=== PATIENT | female | born 1955 | race Caucasian/White ===

== ENCOUNTER 2016-09-13 11:30 | Outpatient (RCR) | payer OTHER ==
[~2016-09-13 11:30] MED LIST: EMPA1TAB3 PO; FAMO20TA45 PO; IBUP1TAB14 PO; LORC10TA PO; METF1000 PO; OXYC-197 PO; PRAV20TA3 PO; VALS160T28 PO; VITA1CAP PO
== END 2016-09-13 12:03 | disposition home or self-care (01) ==
PROVIDERS: ATTEND Orthopaedic Surgery
DX: Z98.890 Other specified postprocedural states (principal); M25.562 Pain in left knee

== ENCOUNTER 2017-10-20 23:06 | Emergency (ER) | payer OTHER ==
[~2017-10-20] VITALS: Ht 160 cm; Wt 84.4 kg
[~2017-10-20 23:06] MED LIST changes: -METF1000 PO; +METF10002 PO; -VALS160T28 PO; +VALS160T29 PO
[2017-10-20] MEDS ORDERED: fentaNYL INJECTION 100 MCG/2 ML AMP IVP STA (23:39)
[2017-10-20] MEDS ORDERED: DEXAMETHASONE 10 MG/ML (DECADRON) 1 ML VIAL IV STA (23:42)
[2017-10-20] MEDS ORDERED: ONDANSETRON 4 MG/2 ML (SDV) Z0FRAN IVP ONE (23:45)
--- NOTE | 2017-10-20 23:49 | ED General ---
General Stated Complaint: TOOTH PAIN Source of Information: Patient Exam Limitations: No Limitations History of Present Illness Date Seen by Provider: Oct 20, 2017 Time Seen by Provider: 23:20 Initial Comments Here with left-sided jaw pain that is at the area of the TMJ and along the lower jaw. Apparently had cataract surgery a few days ago and then Saturday night noted to have pain near the area were her bridge sats on the left lower jaw. Those teeth are sensitive and then she started having pain into her TMJ area. This is not relieved with ibuprofen, Tylenol, ice packs or warm packs, topical Anbesol or any other therapy tried at home. She did have a hydrocodone that she took yesterday because vomiting for several hours. She has not taken any of that today. States the pain is getting worse in intensity. Denies shortness of breath or chest pain. Did have the vomiting yesterday but none today. Denies weakness or sweating. Timing/Duration: 1-2 Days, Getting Worse Severity: Moderate, Severe Associated Systoms: No Chest Pain, No Cough, No Diaphoresis, No Fever/Chills; Nausea/Vomiting; No Shortness of Air, No Weakness Allergies and Home Medications Allergies Coded Allergies: Penicillins (Verified Allergy, Unknown, nausea, ringing in ears, 09/28/15) meperidine (Verified Allergy, Unknown, SENSITIVE, 05/25/08) Home Medications Empagliflozin/Linagliptin 1 Each Tablet, 1 EACH PO DAILY, (Reported) Famotidine 20 Mg Tablet, 20 MG PO DAILY PRN for HEARTBURN, (Reported) Ibuprofen/Diphenhydramine Cit 1 Each Tablet, 2 EACH PO HS, (Reported) Lorcaserin HCl 10 Mg Tablet, 10 MG PO BID, (Reported) Metformin HCl 1,000 Mg Tablet, 1,000 MG PO BID WITH MEALS, (Reported) Oxycodone HCl/Acetaminophen 1 Each Tablet, 1 EACH PO Q4H Prescribed by: YAZMIN HOOVER on 10/05/152048 Pravastatin Sodium 20 Mg Tablet, 20 MG PO HS, (Reported) Valsartan 160 Mg Tablet, 160 MG PO DAILY, (Reported) Vitamin B Complex 1 Each Capsule, 1 EACH PO DAILY, (Reported) Patient Home Medication List Home Medication List Reviewed: Yes Review of Systems Constitutional: see HPI; No chills, No fever EENTM: see HPI, mouth pain; No mouth swelling Respiratory: no symptoms reported, see HPI Cardiovascular: no symptoms reported, see HPI Gastrointestinal: see HPI Genitourinary: see HPI Musculoskeletal: see HPI, joint pain, muscle pain Skin: no symptoms reported All Other Systems Reviewed Negative Unless Noted: Yes Past Pjuklcw-Spskfb-Mdkwgu Hx Past Med/Social Hx: Reviewed Nursing Past Med/Soc Hx Patient Social History Alcohol Use: Denies Use Recreational Drug Use: No Smoking Status: Former Smoker Former Smoker, Quit: Sep 28, 1995 Recent Foreign Travel: No Contact w/Someone Who Travel: No Immunizations Up To Date Tetanus Booster (TDap): Unknown Past Medical History Surgeries: Yes Eye Surgery Respiratory: No Cardiac: Yes High Cholesterol, Hypertension Neurological: No Reproductive Disorders: No Sexually Transmitted Disease: No Musculoskeletal: Yes Arthritis Endocrine: Yes Diabetes, Non-Insulin dep Family Medical History Reviewed Nursing Family Hx Cardiovascular disease 19 FATHER G8 BROTHER FH: breast cancer G8 SISTER Myocardial infarction G8 BROTHER Heart Disease, CAD Under 55 Years Old, CAD Over 55 Years Old Physical Exam Vital Signs Vital Signs - First Documented 10/20/17 23:12 Temp 97.2 Pulse 90 Resp 18 B/P (MAP) 171/99 (123) Pulse Ox 97 O2 Delivery Room Air Capillary Refill : Height, Weight, BMI Height: 5'3.00" Weight: 174lbs. 0.0oz. 78.540368ve; 30.8 BMI Method: General Appearance: WD/WN, Mild Distress (jaw pain) HEENT: PERRL/EOMI, Pharynx Normal, Other (tender at the left TMJ) Neck: Non Tender, Supple Respiratory: Lungs Clear, No Respiratory Distress Cardiovascular: Regular Rate, Rhythm, No Murmur Gastrointestinal: Non Tender, Soft Back: Normal Inspection, No CVA Tenderness, No Vertebral Tenderness Extremity: Normal Range of Motion, Non Tender Neurologic/Psychiatric: Alert, Oriented x3 Skin: Normal Color, Warm/Dry Progress/Results/Core Measures Suspected Sepsis SIRS Temperature: Pulse: Respiratory Rate: Laboratory Tests 10/21/17 02:00: White Blood Count 10.6 Blood Pressure / Mean: Laboratory Tests 10/20/17 23:45: Creatinine 1.51H, Total Bilirubin 0.6 10/21/17 02:00: Platelet Count 324 Results/Orders Lab Results Laboratory Tests Test 10/20/17 23:45 10/21/17 02:00 Range/Units Sodium Level 136 135-145 MMOL/L Potassium Level 3.8 3.6-5.0 MMOL/L Chloride Level 98 98-107 MMOL/L Carbon Dioxide Level 21 21-32 MMOL/L Anion Gap 17 H 5-14 MMOL/L Blood Urea Nitrogen 27 H 7-18 MG/DL Creatinine 1.51 H 0.60-1.30 MG/DL Estimat Glomerular Filtration Rate 35 BUN/Creatinine Ratio 18 Glucose Level 224 H 70-105 MG/DL Calcium Level 9.9 8.5-10.1 MG/DL Total Bilirubin 0.6 0.1-1.0 MG/DL Aspartate Amino Transf (AST/SGOT) 21 5-34 U/L Alanine Aminotransferase (ALT/SGPT) 26 0-55 U/L Alkaline Phosphatase 67 40-136 U/L Troponin I < 0.30 <0.30 NG/ML C-Reactive Protein High Sensitivity 0.99 H 0.00-0.50 MG/DL Total Protein 7.4 6.4-8.2 GM/DL Albumin 4.4 3.2-4.5 GM/DL White Blood Count 10.6 4.3-11.0 10^3/uL Red Blood Count 4.66 4.35-5.85 10^6/uL Hemoglobin 14.0 11.5-16.0 G/DL Hematocrit 39 35-52 % Mean Corpuscular Volume 84 80-99 FL Mean Corpuscular Hemoglobin 30 25-34 PG Mean Corpuscular Hemoglobin Concent 36 32-36 G/DL Red Cell Distribution Width 12.1 10.0-14.5 % Platelet Count 324 130-400 10^3/uL Mean Platelet Volume 10.2 7.4-10.4 FL My Orders Orders - ANA CRISTINA LAI MD Fentanyl Injection (Sublimaze Injection (10/20/17 23:39) Ondansetron Injection (Zofran Injectio (10/20/17 23:45) Saline Lock/Iv-Start (10/20/17 23:39) Ekg Tracing (10/20/17 23:39) Troponin I (10/20/17 23:39) Dexamethasone Injection (Decadron Inject (10/20/17 23:42) Orphenadrine Injection (Norflex Injectio (10/21/17 00:40) Saline Lock/Iv-Start (10/21/17 00:40) Ns Iv 1000 Ml (Sodium Chloride 0.9%) (10/21/17 00:40) Comprehensive Metabolic Panel (10/21/17 01:04) Ketorolac Injection (Toradol Injection) (10/21/17 01:38) Hydromorphone Injection (Dilaudid Inje (10/21/17 01:38) Cbc No Diff (10/21/17 02:05) Hs C Reactive Protein (10/21/17 02:05) Medications Given in ED Current Medications Medications Dose Ordered Sig/Emili Route Start Time Stop Time Status Last Admin Dose Admin Ondansetron HCl 4 mg ONCE ONCE IVP 10/20/17 23:45 10/20/17 23:46 DC 10/20/17 23:49 4 MG Sodium Chloride 1,000 ml @ 0 mls/hr Q0M ONCE IV 10/21/17 00:40 10/21/17 00:42 DC 10/21/17 00:51 999 MLS/HR Vital Signs/I&O 10/20/17 23:12 Temp 97.2 Pulse 90 Resp 18 B/P (MAP) 171/99 (123) Pulse Ox 97 O2 Delivery Room Air Capillary Refill : Progress Note : Progress Note Seen and evaluated. We will check EKG and troponin given the jaw pain. No acute findings on EKG. IV, fentanyl 50 g IV and Zofran 4 mg IV ordered. We will check troponin. Monitor patient. 0040: Improved but still has some pain. Mouth evaluation does not reveal any abscess. We will give a liter of normal saline as well as 60 mg of Norflex IV given her continued discomfort. She still is somewhat nauseated. She has not ate or drank well over the last 24 hours which is why we are given IV fluids. Monitor patient. 0204: I had ordered 0.5 of Dilaudid and 15 of Toradol IV but canceled the Toradol after creatinine was elevated. This does not appear to be a typical range for her may be related to dehydration and recent NSAID use. Patient is still nauseated and still has pain. We have added CBC. Continue to monitor. 0243: Overall patient much better. I did discuss with her regarding the renal function. We will try outpatient continue to use [id number] medicine as her pain is improved. She will stop NSAIDs and increase fluids. I will send a copy of the chart to Dr. Daly to have recheck of creatinine function next week or so. Discharged home with return precautions. Patient verbalize understanding instructions and agreement with plan. ECG Initial ECG Impression Date: Oct 20, 2017 Initial ECG Impression Time: 23:22 Initial ECG Rate: 83 Initial ECG Rhythm: Normal Sinus Comment Sinus rhythm with normal axis. No evidence of ST elevation MD. Similar to previous of 28 September 2015. Interpreted by me. Departure Impression Primary Impression: TMJ tenderness, left Additional Impressions: Acute renal insufficiency Nausea and vomiting Qualified Codes: R11.2 - Nausea with vomiting, unspecified Disposition: HOME, SELF-CARE Condition: Improved Departure-Patient Inst. Decision time for Depature: 02:48 Referrals: YAZMIN HOOVER MD (PCP) Primary Care Physician Patient Instructions: Nausea and Vomiting, Adult (DC), Temporomandibular Joint (TMJ) Disorders (DC) Add. Discharge Instructions: Continue home medications as previously prescribed. You may take Tylenol/ acetaminophen 1000 mg every 6 hours as needed for pain. Continue to use ice packs to the left side of the jaw 20 minutes per hour as needed for pain or swelling. Soft diet for the next week or 2 and then as prescribed by your dentist. See your dentist on Saturday. You may take Pepcid or the generic famotidine 20 mg daily for the next 3 days and then as needed for increased stomach acid. You should follow up with Dr. Daly next week for recheck of your kidney function. A copy of your chart was sent to his office. Return for worse pain, vomiting, weakness, breathing problems or other concerns as needed. Scripts Cyclobenzaprine HCl (Cyclobenzaprine HCl) 10 Mg Tablet 10 MG PO Q8H PRN for SPASMS, #15 TAB 0 Refills Prov: ANA CRISTINA LAI MD 10/21/17 Copy Copies To 1: IVORY DALY MD, TIMOTHY D MD Oct 20, 2017 23:49
[2017-10-21] MEDS ORDERED: ORPHENADRINE 60 MG/2 ML (NORFLEX) AMP IV STA (00:40)
[2017-10-21] MEDS ORDERED: NS IV 1000 ML 1,000 ML IV ONE (00:40)
[2017-10-21 01:37] LABS: ALBUMIN 4.4 GM/DL (3.2-4.5); BILIRUBIN,TOTAL 0.6 MG/DL (0.1-1.0); CALCIUM 9.9 MG/DL (8.5-10.1); CREATININE SERUM 1.51 MG/DL (0.60-1.30); POTASSIUM 3.8 MMOL/L (3.6-5.0); TOTAL PROTEIN 7.4 GM/DL (6.4-8.2)
[2017-10-21] MEDS ORDERED: KETOROLAC 30 MG/ML VIAL IVP STA (01:38)
[2017-10-21] MEDS ORDERED: HYDROmorphone 1 MG/ML (DILAUDID) 1 ML SYRINGE IV STA (01:38)
[2017-10-21 02:24] LABS: MEAN PLATELET VOLUME 10.2 FL (7.4-10.4); RED BLOOD COUNT 4.66 10^6/uL (4.35-5.85); RED CELL DISTRIBUTION WIDTH 12.1 % (10.0-14.5); WHITE BLOOD COUNT 10.6 10^3/uL (4.3-11.0)
[2017-10-21] MEDS ORDERED: CYCL10TA9 PO (02:51)
[2017-10-21 03:00] VITALS: BP 153/93
== END 2017-10-21 03:00 | disposition home or self-care (01) ==
LOC: EDUNIT# 23:06 → ER 23:07
DX: R68.84 Jaw pain (principal); N28.9 Disorder of kidney and ureter, unspecified; R11.2 Nausea with vomiting, unspecified; I10 Essential (primary) hypertension; E78.00 Pure hypercholesterolemia, unspecified; E11.9 Type 2 diabetes mellitus without complications; Z88.0 Allergy status to penicillin; Z88.5 Allergy status to narcotic agent; Z87.891 Personal history of nicotine dependence; Z79.84 Long term (current) use of oral hypoglycemic drugs
CPT/HCPCS: 36415; 80053; 84484; 85027; 86141; 93005; 96361; 96374; 96375

== ENCOUNTER → 2018-05-13 | Outpatient (CLI) | payer OTHER ==
[~2018-05-13] MED LIST changes: +CYCL10TA9 PO; +METF-399 PO; -METF10002 PO; -OXYC-197 PO; +OXYC1TAB87 PO
--- NOTE | 2018-05-13 09:40 | Diagnostic Imaging Report ---
INDICATION: 63-year-old postmenopausal female. COMPARISON: None. FINDINGS: AP Spine L1-L4: [BMD (g/cm2): 1.677] [T-Score: 4.0] [Z-Score: 4.9] [BMD Previous: NA] [BMD % Change: NA] LT Hip Neck: [BMD (g/cm2): 1.013] [T-Score: -0.2] [Z-Score: 0.9] LT Hip Total: [BMD (g/cm2):1.138] [T-Score:1.0] [Z-Score: 1.8] [BMD Previous: NA] [BMD % Change: NA] RT Hip Neck: [BMD (g/cm2):1.021] [T-Score:-0.1] [Z-Score:0.9] RT Hip Total: [BMD (g/cm2):1.204] [T-score:1.6] [Z-Score:2.3] [BMD Previous:NA] [BMD % Change:NA] *Indicates significant change from prior examination based on 95% confidence level. World Health Organization criteria for BMD interpretation classify patients as Normal (T-score at or above -1.0), Osteopenic (T-score between -1.0 and -2.5) or Osteoporotic (T-score at or below -2.5). LIMITATIONS AND MODIFICATION: Degenerative changes in the lumbar spine falsely elevate the bone density. FRACTURE RISK (FRAX SCORE): Normal bone density. IMPRESSION: 1. Normal bone mineral density. 2. Baseline examination. 3. See below National Osteoporosis Foundation guidelines on when to potentially initiate pharmacologic therapy. Based on the National Osteoporosis Foundation Guidelines, pharmacologic treatment should be initiated in any of the following, unless clinical conditions suggest otherwise: * Any patient with prior fragility fracture of the hip or vertebrae. A spine fracture indicates 5X risk for subsequent spine fracture and 2X risk for subsequent hip fracture. * Osteoporosis (T-score <-2.5). * Postmenopausal women and men age 50 and older with low bone mass/osteopenia (T-score between -1.0 and -2.5) by DXA and 10-year major osteoporotic fracture greater than 20% or a 10-year probability of hip fracture greater than 3%. These fracture risks are supplied above in the FRAX score, if applicable. * Clinician judgment and/or patient preferences may indicate treatment for people with 10-year fracture probabilities above or below these levels. Dictated by: Dictated on workstation # [id number]
--- NOTE | 2018-05-13 15:55 | Diagnostic Imaging Report ---
INDICATION: Routine screening. COMPARISON: 01/26/2010 and 11/04/2006. TECHNIQUE: 2D and 3D bilateral screening mammography was performed with CAD. FINDINGS: Scattered fibroglandular densities are identified bilaterally. The parenchymal pattern is stable. No mass or malignant appearing microcalcifications are seen. The axillae are unremarkable. IMPRESSION: No mammographic features suspicious for malignancy are identified. ACR BI-RADS Category 1: Negative. Result letter will be mailed to the patient. Note: At least 10% of breast cancer is not imaged by mammography. Dictated by: Dictated on workstation # [id number]
== END ==
LOC: RAD 08:07
PROVIDERS: ATTEND Internal Medicine Endocrinology, Diabetes & Metabolism
DX: Z12.31 Encounter for screening mammogram for malignant neoplasm of breast (principal); E11.21 Type 2 diabetes mellitus with diabetic nephropathy; G62.9 Polyneuropathy, unspecified; M17.12 Unilateral primary osteoarthritis, left knee; Z78.0 Asymptomatic menopausal state
CPT/HCPCS: 77067; 77080

== ENCOUNTER 2020-05-11 21:17 | Observation (INO) | payer OTHER, MEDICARE ==
[~2020-05-11] VITALS: Ht 160 cm; Wt 87.5 kg
[2020-05-11] MEDS ORDERED: ASPIRIN 81 MG CHEW (CHILDREN'S ASA) PO ONE (21:30)
--- NOTE | 2020-05-11 21:36 | ED Chest Pain ---
General Chief Complaint: Chest Pain Stated Complaint: SEVERE CP/ LEFT ARM PAIN Source: patient Exam Limitations: no limitations (BRYSON BOOTHE APRN) History of Present Illness Date Seen by Provider: May 11, 2020 Time Seen by Provider: 21:34 Initial Comments To ER with reports of severe central chest pain that radiates into her neck and left arm. This particular episode began about 30 minutes ago while getting ready for bed. She has been having chest pains at random 2-3 times a day each episode lasting 5 to 30 minutes and associated with intermittent nausea and diaphoresis. These intermittent chest pains have been present for a few weeks. She has a history of high triglycerides. She does not smoke. She takes a baby aspirin daily. She had a brother who at the age of 58 from coronary artery disease. Timing/Duration: changing over time Severity/Quality: severe Location: central Radiation: no radiation Activities at Onset: none ASA po BRINE ROOM LABORER: No NTG SL BRINE ROOM LABORER: No Associated Symptoms: shortness of breath (BRYSON BOOTHE APRN) Allergies and Home Medications Allergies Coded Allergies: Penicillins (Verified Allergy, Unknown, nausea, ringing in ears, 09/28/15) meperidine (Verified Allergy, Unknown, SENSITIVE, 05/25/08) Home Medications Cyclobenzaprine HCl 10 Mg Tablet, 10 MG PO Q8H PRN for SPASMS Prescribed by: ANA CRISTINA LAI on 10/21/17 0251 Empagliflozin/Linagliptin 1 Each Tablet, 1 EACH PO DAILY, (Reported) Famotidine 20 Mg Tablet, 20 MG PO DAILY PRN for HEARTBURN, (Reported) Ibuprofen/Diphenhydramine Cit 1 Each Tablet, 2 EACH PO HS, (Reported) Lorcaserin HCl 10 Mg Tablet, 10 MG PO BID, (Reported) Metformin HCl 1,000 Mg Tablet, 1,000 MG PO BID WITH MEALS, (Reported) Oxycodone HCl/Acetaminophen 1 Each Tablet, 1 EACH PO Q4H Prescribed by: YAZMIN HOOVER on 10/05/152048 Pravastatin Sodium 20 Mg Tablet, 20 MG PO HS, (Reported) Valsartan 160 Mg Tablet, 160 MG PO DAILY, (Reported) Vitamin B Complex 1 Each Capsule, 1 EACH PO DAILY, (Reported) Patient Home Medication List Home Medication List Reviewed: Yes (BRYSON BOOTHE APRN) Review of Systems Review of Systems Constitutional: see HPI EENTM: No Symptoms Reported Respiratory: No Symptoms Reported Cardiovascular: See HPI, Chest Pain Gastrointestinal: See HPI, Abdominal Pain Genitourinary: No Symptoms Reported Musculoskeletal: no symptoms reported Skin: no symptoms reported Psychiatric/Neurological: No Symptoms Reported Endocrine: No Symptoms Reported (BRYSON BOOTHE APRN) Past Ccbzgxu-Qfzrwd-Sambke Hx Patient Social History Type Used: Cigarettes Former Smoker, Quit: Sep 28, 1995 Recent Hopitalizations: No (BRYSON BOOTHE APRN) Immunizations Up To Date Tetanus Booster (TDap): Unknown (BRYSON BOOTHE APRN) Seasonal Allergies Seasonal Allergies: No (BRYSON BOOTHE APRN) Past Medical History Surgeries: Yes Eye Surgery Respiratory: No Cardiac: Yes High Cholesterol, Hypertension Neurological: No Reproductive Disorders: No Sexually Transmitted Disease: No Genitourinary: No Gastrointestinal: Yes (colon polyps) Musculoskeletal: Yes Arthritis Endocrine: Yes Diabetes, Non-Insulin dep Cancer: No Psychosocial: No Integumentary: No Blood Disorders: No (BRYSON BOOTHE APRN) Family Medical History Cardiovascular disease 19 FATHER G8 BROTHER FH: breast cancer G8 SISTER Myocardial infarction G8 BROTHER Heart Disease, CAD Under 55 Years Old, CAD Over 55 Years Old (BRYSON BOOTHE APRN) Physical Exam Vital Signs Vital Signs - First Documented 05/11/20 21:25 Pulse 93 Resp 20 B/P (MAP) 200/126 (150) O2 Delivery Room Air (MICHELLE GUTIERREZ) Vital Signs Capillary Refill : (BRYSON BOOTHE APRN) Height, Weight, BMI Height: 5'3.00" Weight: 186lbs. 0.0oz. 84.748158bc; 30.8 BMI Method:Stated General Appearance: No Apparent Distress, WD/WN, Other (She arrives rating her pain is severe, she is tearful, rapid breathing. Blood pressure 191/109. Heart rate is 89 sinus without ectopy. No ST elevation on EKG.) Neck: Full Range of Motion, Normal Inspection Respiratory: No Accessory Muscle Use, No Respiratory Distress Cardiovascular: Regular Rate, Rhythm, Normal Peripheral Pulses Gastrointestinal: Normal Bowel Sounds, Non Tender, Soft Extremity: Normal Capillary Refill Neurologic/Psychiatric: Alert, Oriented x3 Skin: Normal Color, Warm/Dry (BRYSON BOOTHE APRN) Progress/Results/Core Measures Results/Orders Lab Results Laboratory Tests Test 05/11/20 21:32 Range/Units White Blood Count 10.4 4.3-11.0 10^3/uL Red Blood Count 5.01 3.80-5.11 10^6/uL Hemoglobin 14.2 11.5-16.0 g/dL Hematocrit 43 35-52 % Mean Corpuscular Volume 85 80-99 fL Mean Corpuscular Hemoglobin 28 25-34 pg Mean Corpuscular Hemoglobin Concent 33 32-36 g/dL Red Cell Distribution Width 12.7 10.0-14.5 % Platelet Count 412 H 130-400 10^3/uL Mean Platelet Volume 9.6 9.0-12.2 fL Immature Granulocyte % (Auto) 0 % Neutrophils (%) (Auto) 42 42-75 % Lymphocytes (%) (Auto) 46 H 12-44 % Monocytes (%) (Auto) 8 0-12 % Eosinophils (%) (Auto) 4 0-10 % Basophils (%) (Auto) 1 0-10 % Neutrophils # (Auto) 4.4 1.8-7.8 10^3/uL Lymphocytes # (Auto) 4.8 H 1.0-4.0 10^3/uL Monocytes # (Auto) 0.8 0.0-1.0 10^3/uL Eosinophils # (Auto) 0.4 H 0.0-0.3 10^3/uL Basophils # (Auto) 0.1 0.0-0.1 10^3/uL Immature Granulocyte # (Auto) 0.0 0.0-0.1 10^3/uL Prothrombin Time 12.8 12.2-14.7 SEC INR Comment 0.9 0.8-1.4 Activated Partial Thromboplast Time 32 24-35 SEC Sodium Level 137 135-145 MMOL/L Potassium Level 3.5 L 3.6-5.0 MMOL/L Chloride Level 101 98-107 MMOL/L Carbon Dioxide Level 20 L 21-32 MMOL/L Anion Gap 16 H 5-14 MMOL/L Blood Urea Nitrogen 23 H 7-18 MG/DL Creatinine 1.30 0.60-1.30 MG/DL Estimat Glomerular Filtration Rate 41 BUN/Creatinine Ratio 18 Glucose Level 206 H 70-105 MG/DL Calcium Level 9.6 8.5-10.1 MG/DL Corrected Calcium 9.2 8.5-10.1 MG/DL Magnesium Level 2.1 1.6-2.4 MG/DL Total Bilirubin 0.3 0.1-1.0 MG/DL Aspartate Amino Transf (AST/SGOT) 24 5-34 U/L Alanine Aminotransferase (ALT/SGPT) 27 0-55 U/L Alkaline Phosphatase 63 40-136 U/L Myoglobin 46.0 10.0-92.0 NG/ML Troponin I 0.180 H <0.028 NG/ML B-Type Natriuretic Peptide 111.0 H <100.0 PG/ML Total Protein 8.0 6.4-8.2 GM/DL Albumin 4.5 3.2-4.5 GM/DL (MICHELLE GUTIERREZ) My Orders Orders - MICHELLE GUTIERREZ Nitroglycerin Ointment (Nitrobid Ointme (05/11/20 22:15) (MICHELLE GUTIERREZ) Medications Given in ED Current Medications Medications Dose Ordered Sig/Emili Route Start Time Stop Time Status Last Admin Dose Admin Aspirin 324 mg ONCE ONCE PO 05/11/20 21:30 05/11/20 21:31 DC 05/11/20 21:37 324 MG Lorazepam 0.5 mg ONCE PRN IVP 05/11/20 21:45 05/11/20 21:40 0.5 MG Nitroglycerin 0.5 inch ONCE ONCE TOP 05/11/20 22:15 05/11/20 22:16 DC 05/11/20 22:04 0.5 INCH Nitroglycerin 1 TAB Q 5 MIN X 3 NEEDED PRN SL 05/11/20 21:45 05/11/20 21:52 0.4 MG (MICHELLE GUTIERREZ) Vital Signs/I&O 05/11/20 21:25 Pulse 93 Resp 20 B/P (MAP) 200/126 (150) O2 Delivery Room Air (MICHELLE GUTIERREZ) Progress Progress Note : Time: 21:41 Progress Note I agree with the above documented physical exam and history. I assumed care of the patient at shift change. If she has a negative initial troponin her heart score is still 6 points so we have found her a observation bed for work-up for acute coronary syndrome. (MICHELLE GUTIERREZ) Initial ECG Impression Date: May 11, 2020 Initial ECG Impression Time: 21:30 Initial ECG Rate: 89 Initial ECG Rhythm: Normal Sinus Initial ECG Intervals: Normal Initial ECG Impression: Normal Comment Normal sinus rhythm without clinically relevant ST elevation or depression. (MICHELLE GUTIERREZ) Diagnostic Imaging Diagonstic Imaging: Xray Plain Films/CT/US/NM/MRI: chest Comments NAME: QIAN KOWALSKI [facility] REC#: [id number] PT STATUS: REG ER : 1955 PHYSICIAN: BRYSON BOOTHE APRN ADMIT DATE: 05/11/20/ER Signed Date of Exam:05/11/20 CHEST 1 VIEW, AP/PA ONLY EXAMINATION: Chest 1 view. HISTORY: Chest pain. COMPARISON: 09/28/2015. FINDINGS: The lung volumes are normal. Patchy opacities are seen in the right lung base. No large pleural effusion or pneumothorax is seen. The cardiomediastinal silhouette is normal in size and contour. No acute osseous abnormality is seen. IMPRESSION: Patchy opacities in the right lung base, which may represent inflammatory or infectious process. Atelectasis can also have this appearance. Dictated by: Dictated on workstation # [id number] Dict: 05/11/202151 Trans: 05/11/202201 [facility] [id number] Interpreted by: ALEK CABRERA DO Electronically signed by: ALEK CABRERA DO 05/11/202201 Reviewed: Reviewed by Me (MICHELLE GUTIERREZ) Departure Communication (Admissions) Time/Spoke to Admitting Phy: 22:30 Dr Carrizales agrees to observe with Cardiac Consult Time/Spoke to Consulting Phy: 22:15 Dr. Wagoner agrees to consult and he is okay with med telemetry on the floor. He would like aspirin and Lovenox. (MICHELLE GUTIERREZ) Impression Primary Impression: ACS (acute coronary syndrome) Disposition: ADMITTED INPATIENT Condition: Stable Admissions Decision to Admit Reason: Admit from ER (General) Decision to Admit/Date: May 11, 2020 Time/Decision to Admit Time: 21:45 (MICHELLE GUTIERREZ) Departure-Patient Inst. Referrals: IVORY DERAS MD (PCP/Family) Primary Care Physician BRYSON BOOTHE APRN May 11, 2020 21:36 MICHELLE GUTIERREZ May 11, 2020 21:43
[2020-05-11] MEDS: NITROGLYCERIN 0.4 MG SL TABS BTL 25'S SL PRN ×3 (21:38→21:52)
[2020-05-11 21:44] LABS: BASOPHILS # (AUTO) 0.1 10^3/uL (0.0-0.1); BASOPHILS % (AUTO) 1 % (0-10); EOSINOPHILS # (AUTO) 0.4 10^3/uL (0.0-0.3); EOSINOPHILS % (AUTO) 4 % (0-10); HEMATOCRIT 43 % (35-52); HEMOGLOBIN 14.2 g/dL (11.5-16.0); LYMPHOCYTES # (AUTO) 4.8 10^3/uL (1.0-4.0); LYMPHOCYTES % (AUTO) 46 % (12-44); MEAN CORPUSCULAR HEMOGLOBIN 28 pg (25-34); MEAN CORPUSCULAR HGB CONC 33 g/dL (32-36); MEAN CORPUSCULAR VOLUME 85 fL (80-99); MEAN PLATELET VOLUME 9.6 fL (9.0-12.2); MONOCYTES # (AUTO) 0.8 10^3/uL (0.0-1.0); MONOCYTES % (AUTO) 8 % (0-12); NEUTROPHILS # (AUTO) 4.4 10^3/uL (1.8-7.8); NEUTROPHILS % (AUTO) 42 % (42-75); PLATELET COUNT 412 10^3/uL (130-400); WHITE BLOOD COUNT 10.4 10^3/uL (4.3-11.0)
[2020-05-11] MEDS ORDERED: LORazepam INJ 2 MG/ML (ATIVAN) VIAL IVP PRN ×2 (21:45→23:45)
[2020-05-11 21:50] LABS: INR 0.9 (0.8-1.4); PROTHROMBIN TIME PATIENT 12.8 SEC (12.2-14.7)
[2020-05-11 21:51] LABS: ALBUMIN 4.5 GM/DL (3.2-4.5); POTASSIUM 3.5 MMOL/L (3.6-5.0)
[2020-05-11 21:53] LABS: CALCIUM 9.6 MG/DL (8.5-10.1)
[2020-05-11 21:56] LABS: BILIRUBIN,TOTAL 0.3 MG/DL (0.1-1.0)
--- NOTE | 2020-05-11 21:56 | Diagnostic Imaging Report ---
EXAMINATION: Chest 1 view. HISTORY: Chest pain. COMPARISON: 09/28/2015. FINDINGS: The lung volumes are normal. Patchy opacities are seen in the right lung base. No large pleural effusion or pneumothorax is seen. The cardiomediastinal silhouette is normal in size and contour. No acute osseous abnormality is seen. IMPRESSION: Patchy opacities in the right lung base, which may represent inflammatory or infectious process. Atelectasis can also have this appearance. Dictated by: Dictated on workstation # [id number]
[2020-05-11 21:57] LABS: CREATININE SERUM 1.3 MG/DL (0.60-1.30)
[2020-05-11 22:00] LABS: MAGNESIUM 2.1 MG/DL (1.6-2.4)
[2020-05-11] MEDS ORDERED: NITROGLYCERIN 2% OINT 1 GM UNIT DOSE PACKET TOP ONE (22:15)
[2020-05-11] MEDS ORDERED: GABAPENTIN 300 MG (NEURONTIN) CAP PO ONE (22:45)
[2020-05-11] MEDS ORDERED: ENOXAPARIN 100 MG/1 ML (LOVENOX) SYR SC ONE (22:45)
--- NOTE | 2020-05-11 23:10 | NUR ---
AT BEDSIDE AND NOTIFIED OF INPT VISITOR. PASSWORD OF "SAHIL" ESTABLISHED AND REPORTED TO ADMITTING RN.
--- NOTE | 2020-05-11 23:20 | NUR ---
QIAN KOWALSKI admitted to room 402-1, with an admitting diagnosis of ACS, CHEST PAIN, on 05/11/20 from [facility] via WHEELCHAIR, accompanied by ER STAFF.QIAN KOWALSKI introduced to surroundings, call light, bed controls, phone, TV, temperature control, lights, meal times, smoking policy, visitor policy, side rail policy, bathrooms and showers. Patient Rights given to patient in the handbook. QIAN KOWALSKI verbalizes understanding that [facility] is not responsible for the loss or damage to any personal effects or valuables that are kept in the patients possession during their hospitalization.
[2020-05-11] MEDS ORDERED: morphine INJ 4 MG/ML 1 ML (VIAL/SYRINGE) IV PRN (23:30)
[2020-05-11 23:35] VITALS: BP 144/81
[2020-05-11] MEDS ORDERED: NITROGLYCERIN 2% OINT 1 GM UNIT DOSE PACKET TOP PRN (23:45)
[2020-05-11] MEDS ORDERED: ONDANSETRON 4 MG/2 ML (SDV) Z0FRAN IVP PRN (23:45)
[2020-05-11] MEDS ORDERED: ACETAMINOPHEN 325 MG TABLET PO PRN (23:45)
[2020-05-11 23:50] VITALS: BP 150/77
[2020-05-11] MEDS: NS IV 1000 ML 1,000 ML IV SCH (23:59)
[2020-05-12] VITALS (14 sets, daily range): BP systolic 113–143; BP diastolic 66–90
[2020-05-12 03:53] LABS: BASOPHILS # (AUTO) 0.1 10^3/uL (0.0-0.1); BASOPHILS % (AUTO) 1 % (0-10); EOSINOPHILS # (AUTO) 0.3 10^3/uL (0.0-0.3); EOSINOPHILS % (AUTO) 3 % (0-10); HEMATOCRIT 39 % (35-52); HEMOGLOBIN 13.2 g/dL (11.5-16.0); LYMPHOCYTES # (AUTO) 3.4 10^3/uL (1.0-4.0); LYMPHOCYTES % (AUTO) 38 % (12-44); MEAN CORPUSCULAR HEMOGLOBIN 29 pg (25-34); MEAN CORPUSCULAR HGB CONC 34 g/dL (32-36); MEAN CORPUSCULAR VOLUME 85 fL (80-99); MEAN PLATELET VOLUME 9.4 fL (9.0-12.2); MONOCYTES # (AUTO) 0.6 10^3/uL (0.0-1.0); MONOCYTES % (AUTO) 7 % (0-12); NEUTROPHILS # (AUTO) 4.7 10^3/uL (1.8-7.8); NEUTROPHILS % (AUTO) 52 % (42-75); PLATELET COUNT 328 10^3/uL (130-400)
[2020-05-12 04:12] LABS: ALANINE AMINOTRANSFERASE 24 U/L (0-55); ALBUMIN 3.9 GM/DL (3.2-4.5); ALKALINE PHOSPHATASE 50 U/L (40-136); BILIRUBIN,TOTAL 0.2 MG/DL (0.1-1.0); BUN/CREATININE RATIO 20; CARBON DIOXIDE 20 MMOL/L (21-32); CHLORIDE 106 MMOL/L (98-107); CHOLESTEROL 155 MG/DL (< 200); CREATININE SERUM 1.03 MG/DL (0.60-1.30); GFR ESTIMATED 54; GLUCOSE 147 MG/DL (70-105); HDL CHOLESTEROL 41 MG/DL (40-60); SODIUM 138 MMOL/L (135-145); TRIGLYCERIDES 626 MG/DL (<150)
[2020-05-12] MEDS: inSUlin ASPART (NovoLOG) 1 UNIT/0.01 ML (CHARGE PER UNIT) SC SCH ×2 (06:25→11:13)
[2020-05-12] MEDS ORDERED: FLU QUAD HIGH DOSE 240 MCG/0.7 ML 2020-21 (FLUZONE) IM ONE (07:15)
--- NOTE | 2020-05-12 07:21 | Diagnostic Imaging Report ---
Indication: Chest pain Single AP view of the chest is obtained with comparison made study of 05/11/2020 FINDINGS: Heart size and pulmonary vascularity are within normal limits, and the lungs are clear, bilaterally. IMPRESSION: Unremarkable chest. Dictated by: Dictated on workstation # [id number]
[2020-05-12] MEDS ORDERED: HEParin (CATH LAB) 2,000 ML IV ONE (07:24)
[2020-05-12] MEDS ORDERED: LIDOCAINE 1% INJ 20 ML 20 ML VIAL ONE (07:24)
--- NOTE | 2020-05-12 08:39 | History & Physical ---
History of Present Illness History of Present Illness Date of Admission May 11, 2020 at 22:35 Date Seen by a Provider: May 12, 2020 Time Seen by a Provider: 08:37 I consulted on this patient on 05/12/20 08:37 Attending Physician Aida Carrizales MD Admitting Physician AIDA CARRIZALES MD Consult Allergies and Home Medications Allergies Coded Allergies: Penicillins (Verified Allergy, Unknown, nausea, ringing in ears, 09/28/15) meperidine (Verified Allergy, Unknown, SENSITIVE, 05/25/08) Home Medications Cyclobenzaprine HCl 10 Mg Tablet, 10 MG PO Q8H PRN for SPASMS Prescribed by: ANA CRISTINA LAI on 10/21/17 0251 Empagliflozin/Linagliptin 1 Each Tablet, 1 EACH PO DAILY, (Reported) Famotidine 20 Mg Tablet, 20 MG PO DAILY PRN for HEARTBURN, (Reported) Ibuprofen/Diphenhydramine Cit 1 Each Tablet, 2 EACH PO HS, (Reported) Lorcaserin HCl 10 Mg Tablet, 10 MG PO BID, (Reported) Metformin HCl 1,000 Mg Tablet, 1,000 MG PO BID WITH MEALS, (Reported) Oxycodone HCl/Acetaminophen 1 Each Tablet, 1 EACH PO Q4H Prescribed by: YAZMIN HOOVER on 10/05/152048 Pravastatin Sodium 20 Mg Tablet, 20 MG PO HS, (Reported) Valsartan 160 Mg Tablet, 160 MG PO DAILY, (Reported) Vitamin B Complex 1 Each Capsule, 1 EACH PO DAILY, (Reported) Past Ehnwrfk-Hxutez-Ypsbvm Hx Patient Social History Alcohol Use: Regular Use Alcohol Beverage of Choice: Wine Recreational Drug Use: No Smoking Status: Former Smoker Former Smoker, Quit: Sep 28, 1995 Type Used: Cigarettes Recent Foreign Travel: No Contact w/other who traveled: No Recent Hopitalizations: No Recent Infectious Disease Expo: No Immunizations Up To Date Tetanus Booster (TDap): Unknown Seasonal Allergies Seasonal Allergies: No Past Medical History Surgeries: Eye Surgery, Gallbladder, Hysterectomy, Orthopedic Cardiac: High Cholesterol, Hypertension Reproductive: No Sexually Transmitted Disease: No Musculoskeletal: Arthritis Endocrine: Diabetes, Non-Insulin dep History of Blood Disorders: No Family History Cardiovascular disease 19 FATHER G8 BROTHER FH: breast cancer G8 SISTER Myocardial infarction G8 BROTHER Heart Disease, CAD Under 55 Years Old, CAD Over 55 Years Old Physical Exam Vital Signs Vital Signs - First Documented 05/11/20 05/11/20 21:25 23:17 Temp 37.0 Pulse 93 Resp 20 B/P (MAP) 200/126 (150) Pulse Ox 95 O2 Delivery Room Air Capillary Refill : Less Than 3 Seconds Height, Weight, BMI Height: 5'3.00" Weight: 186lbs. 0.0oz. 84.206889wl; 34.25 BMI Method:Stated Assessment/Plan Assessment and Plan CHEST PAIN HYPERTENSION DIABETES MELLITUS ELEVATED TROPONIN Clinical Quality Measures AMI/AHF: ASA po Prior to arrival: AIDA Sanchez MD May 12, 2020 08:39
[2020-05-12] MEDS ORDERED: VALS1TAB5 PO (08:52)
[2020-05-12] MEDS ORDERED: ACET-2267 PO (08:52)
[2020-05-12] MEDS ORDERED: MAGN400C PO (08:52)
[2020-05-12] MEDS ORDERED: PITA4TAB2 PO (08:52)
[2020-05-12] MEDS ORDERED: MULT-1136 PO (08:52)
[2020-05-12] MEDS ORDERED: INSU100I34 SC (08:52)
[2020-05-12] MEDS ORDERED: L.AC1CAP6 PO (08:52)
[2020-05-12] MEDS ORDERED: ASPI-1238 PO (08:52)
[2020-05-12] MEDS ORDERED: GABA-486 PO (08:52)
[2020-05-12] MEDS ORDERED: OMEP20CA18 PO (08:52)
[2020-05-12] MEDS ORDERED: COLE625T14 PO (08:52)
[2020-05-12] MEDS ORDERED: GLIM4TAB5 PO (08:52)
[2020-05-12] MEDS ORDERED: GABA300C PO (08:52)
[2020-05-12] MEDS ORDERED: EZET10TA49 PO (08:52)
[2020-05-12] MEDS ORDERED: EMPA1TAB PO (08:52)
--- NOTE | 2020-05-12 08:58 | NUR ---
SPOKE WITH THE PT AND WENT THRU THE EXT MED HISTORY TO COMPLETE THE MED REC PT WAS ABLE TO NAME ALL HER MEDS WELL WHEN/HOW SHE TAKES EACH OTC MEDS: MAGNESIUM ASPIRIN 81MG PROBIOTIC MTV TYLENOL
[2020-05-12] MEDS ORDERED: ENOXAPARIN 100 MG/1 ML (LOVENOX) SYR SC SCH (09:00)
[2020-05-12] MEDS ORDERED: ASPIRIN E.C. 81 MG (ECOTRIN) TAB PO SCH (09:00)
--- NOTE | 2020-05-12 09:51 | Consultation-Cardiology ---
HPI-Cardiology Cardiology Consultation Date of Consultation 05/12/20 Date of Admission Time Seen by Provider: 08:37 Indication: Chest pain, elevated troponin HPI Patient is a 65 y/o female with history of HTN, HLP, DM. Presented to the ER with complaints of chest pain intermittent for the last 2 weeks. C/o chest pressure and tightness at this time, rated 2/10. Associated left jaw and arm pain and dizziness. Home Medications & Allergies Allergies: Coded Allergies: Penicillins (Verified Allergy, Unknown, nausea, ringing in ears, 09/28/15) meperidine (Verified Allergy, Unknown, SENSITIVE, 05/25/08) Home Medication List Reviewed: Yes YLU-[id number]-[id number] Hx Patient Social History Marital Status: Recreational Drug Use: No Smoking Status: Former Smoker Type Used: Cigarettes Recent Hopitalizations: No Have you traveled recently?: No Alcohol Use?: Yes Immunizations Up To Date Tetanus Booster (TDap): Unknown Past Medical History HTN, HLP, DM Family Medical History Significant Family History: Heart Disease, CAD Under 55 Years Old, CAD Over 55 Years Old Family History: Cardiovascular disease 19 FATHER G8 BROTHER FH: breast cancer G8 SISTER Myocardial infarction G8 BROTHER Review of Systems-General Review of Systems Constitutional: see HPI; No diaphoresis; dizziness; No malaise, No weakness EENTM: see HPI; No blurred vision, No double vision, No vision loss Respiratory: see HPI; No cough, No dyspnea on exertion, No short of breath Cardiovascular: see HPI, chest pain; No edema, No Hx of Intervention, No pa lpitations Gastrointestinal: No abdominal pain Musculoskeletal: no symptoms reported Skin: no symptoms reported Psychiatric/Neurological: No Symptoms Reported Reviewed Test Results Reviewed Test Results Lab Laboratory Tests 05/11/20 21:32: White Blood Count 10.4, Red Blood Count 5.01, Hemoglobin 14.2, Hematocrit 43, Mean Corpuscular Volume 85, Mean Corpuscular Hemoglobin 28, Mean Corpuscular Hemoglobin Concent 33, Red Cell Distribution Width 12.7, Platelet Count 412H, Mean Platelet Volume 9.6, Immature Granulocyte % (Auto) 0, Neutrophils (%) (Auto) 42, Lymphocytes (%) (Auto) 46H, Monocytes (%) (Auto) 8, Eosinophils (%) (Auto) 4, Basophils (%) (Auto) 1, Neutrophils # (Auto) 4.4, Lymphocytes # (Auto) 4.8H, Monocytes # (Auto) 0.8, Eosinophils # (Auto) 0.4H, Basophils # (Auto) 0.1, Immature Granulocyte # (Auto) 0.0, Prothrombin Time 12.8, INR Comment 0.9, Activated Partial Thromboplast Time 32, Sodium Level 137, Potassium Level 3.5L, Chloride Level 101, Carbon Dioxide Level 20L, Anion Gap 16H, Blood Urea Nitrogen 23H, Creatinine 1.30, Estimat Glomerular Filtration Rate 41, BUN/Creatinine Ratio 18, Glucose Level 206H, Calcium Level 9.6, Corrected Calcium 9.2, Magnesium Level 2.1, Total Bilirubin 0.3, Aspartate Amino Transf (AST/SGOT) 24, Alanine Aminotransferase (ALT/SGPT) 27, Alkaline Phosphatase 63, Myoglobin 46.0, Troponin I 0.180H, B-Type Natriuretic Peptide 111.0H, Total Protein 8.0, Albumin 4.5 05/12/20 03:45: White Blood Count 9.0, Red Blood Count 4.55, Hemoglobin 13.2, Hematocrit 39, Mean Corpuscular Volume 85, Mean Corpuscular Hemoglobin 29, Mean Corpuscular Hemoglobin Concent 34, Red Cell Distribution Width 12.8, Platelet Count 328, Mean Platelet Volume 9.4, Immature Granulocyte % (Auto) 0, Neutrophils (%) (Auto) 52, Lymphocytes (%) (Auto) 38, Monocytes (%) (Auto) 7, Eosinophils (%) (Auto) 3, Basophils (%) (Auto) 1, Neutrophils # (Auto) 4.7, Lymphocytes # (Auto) 3.4, Monocytes # (Auto) 0.6, Eosinophils # (Auto) 0.3, Basophils # (Auto) 0.1, Immature Granulocyte # (Auto) 0.0, Sodium Level 138, Potassium Level 4.0, Chloride Level 106, Carbon Dioxide Level 20L, Anion Gap 12, Blood Urea Nitrogen 21H, Creatinine 1.03, Estimat Glomerular Filtration Rate 54, BUN/Creatinine Ratio 20, Glucose Level 147H, Calcium Level 9.0, Corrected Calcium 9.1, Total Bilirubin 0.2, Aspartate Amino Transf (AST/SGOT) 22, Alanine Aminotransferase (ALT/SGPT) 24, Alkaline Phosphatase 50, Troponin I 0.247H, Total Protein 7.0, Albumin 3.9, Triglycerides Level 626H, Cholesterol Level 155, LDL Cholesterol Direct 66, VLDL Cholesterol , HDL Cholesterol 41 05/12/20 09:35: ECG Impression ECG Initial ECG Rhythm: Normal Sinus Physical Exam Physical Exam Vital Signs Vital Signs - First Documented 05/11/20 05/11/20 21:25 23:17 Temp 37.0 Pulse 93 Resp 20 B/P (MAP) 200/126 (150) Pulse Ox 95 O2 Delivery Room Air Capillary Refill : Less Than 3 Seconds Height, Weight, BMI Height: 5'3.00" Weight: 186lbs. 0.0oz. 84.027333qu; 34.25 BMI Method:Stated General Appearance: No Apparent Distress, WD/WN, Other (She arrives rating her pain is severe, she is tearful, rapid breathing. Blood pressure 191/109. Heart rate is 89 sinus without ectopy. No ST elevation on EKG.) Neck: Full Range of Motion, Normal Inspection Respiratory: No Accessory Muscle Use, No Respiratory Distress Cardiovascular: Regular Rate, Rhythm, Normal Peripheral Pulses Gastrointestinal: Normal Bowel Sounds, Non Tender, Soft Extremity: Normal Capillary Refill Neurologic/Psychiatric: Alert, Oriented x3 Skin: Normal Color, Warm/Dry A/P-Cardiology Admission Diagnosis Chest pain Elevated troponin HTN HLP Assessment/Plan Chest pain, unstable angina, patient was having active chest pain this morning, mildly elevated troponin, EKG did not show any acute changes, patient was given nitroglycerin, planning to proceed with cardiac catheterization possible PTCA. HTN, continue to monitor. HLP, maintained on statin, monitor lipids DM, followed and managed by primary care physician Ex tobaccoism Strong fam hx CAD. Thank you for allowing us to participate in the management of Ms. [place]edo. This is Maria Tellez PA-C, as a scribe for Dr. Fontana Patient was seen and evaluated with Maria, examination performed, management plan was discussed, agree with the current scribed note, I made few changes to the note using Italic font Patient was having active chest pain waxing and waning. Given nitroglycerin, had mild elevation in troponin level. I'm planning to proceed with cardiac catheterization possible PTCA. Evaluate 2-D echo. Clinical Quality Measures AMI/AHF: ASA po Prior to arrival: No MARIA CM May 12, 2020 09:51 MORGAN FONTANA MD May 12, 2020 10:38
[2020-05-12] MEDS: NS IV 1000 ML 1,000 ML IV SCH (09:53)
--- NOTE | 2020-05-12 10:09 | NUR ---
NEW NOTIFIED OF TROP 0.788
[2020-05-12] MEDS ORDERED: MIDAZOLAM 5 MG/5 ML (VERSED) VIAL ONE (11:00)
[2020-05-12] MEDS ORDERED: fentaNYL INJECTION 100 MCG/2 ML AMP ONE (11:00)
--- NOTE | 2020-05-12 11:12 | NUR ---
PT TO HELP DESK REPRESENTATIVE VIA BED
[2020-05-12] MEDS ORDERED: NS IV 1000 ML 1,000 ML IV SCH (12:15)
[2020-05-12] MEDS ORDERED: PATIENT MAY USE OWN MEDS, ALL PO SCH (12:15)
--- NOTE | 2020-05-12 12:15 | NUR ---
PT'S BELONGINGS AND TAKEN TO 5TH FLOOR
--- NOTE | 2020-05-12 14:14 | Cardiac Procedure Note-CS/ASA ---
Pre-Procedure Note Pre-Op Procedure Note H&P Reviewed The H&P was reviewed, patient examined and no changes noted. Date H&P Reviewed: May 12, 2020 Time H&P Reviewed: 11:00 Conscious Sedation Pre-Proced Time 11:00 ASA Score 3 For ASA 3 and 4: Consider anesthesia and medical clearance. Also, for patients with a history of failed moderate sedation consider anesthesia. Airway Lungs Heart ASA score ASA 1: a normal healthy patient ASA 2: a patient with a mild systemic disease (mid diabetes, controlled hypertension, obesity x ASA 3: a patient with a severe systemic disease that limits activity (angina, COPD, prior Myocardial infarction) ASA 4: a patient with an incapacitating disease that is a constant threat to life (CHF, renal failure) ASA 5: a moribund patient not expected to survive 24 hrs. (ruptured aneurysm) ASA 6: a declared brain- patient whose organs are being harvested. For emergent operations, add the letter E after the classification Mallampati Classification Grade 3 Sedation Plan Analgesia, Amnesia, Plan communicated to team members, Discussed options with patient/fam, Discussed risks with patient/fam The patient is an appropriate candidate to undergo the planned procedure, sedation, and anesthesia. The patient immediately re-assessed prior to indication. MORGAN MUNROE MD May 12, 2020 14:14
--- NOTE | 2020-05-12 15:00 | NUR ---
EMS leaving with Pt at this time for transfer to [place]. Groin checked with EMS at bedside to assure pt did not show signs of bleeding. Pt's groin soft, asymptomatic and dressing clean and dry.
--- NOTE | 2020-05-12 16:09 | Cardiac Cath Report ---
Cardiac Cath Report Physician (s)/Limo Driver (s) Physician MORGAN MUNROE MD Pre-Procedure Diagnosis Pre-Procedure Diagnosis: Coronary artery disease Post-Procedure Note Procedure Start Date: May 12, 2020 Procedure Start Time: 16:03 Name of Procedure: left heart catheterization Findings/Procedure Note PROCEDURE NOTE: 65 years old lady with strong family history of heart disease admitted with acute chest pain, had elevation in troponin, brought for emergency cardiac catheterization possible PTCA. After explaining the procedure to the patient, all pros and cons were explained, all questions were answered. The patient signed the consent and then she was placed on the cardiac catheterization laboratory. Groin was prepped SL fashion local anesthesia was used. Sheath placed in the right femoral artery. Bette right and left catheter were used to access the coronary system. Pigtail was used to access the left ventricular cavity. Left ventriculogram was done Aortic arch angiogram was done At the end of the procedure the sheath was removed. Closure device FINDINGS: Hemodynamics LV 129/20 end-diastolic pressure of 20 Aorta 115/70 mean of 90 ANATOMY: Left Main is free of obstructive disease Left Anterior Descending is calcified artery with door area of severe stenosis at the proximal and mid LAD Left Circumflex has moderate stenosis proximally, severe stenosis distally Right Coronary Artery has subtotal occlusion at the ostium, severe stenosis at the mid and distal portion with sluggish flow getting collaterals from the left LV Gram was done showing normal left ventricular size, EF 60 percent CONCLUSION: 1. Severe multivessel coronary artery disease 2. Normal left ventricular size and systolic function estimated ejection fraction 60 percent DISCUSSION AND RECOMMENDATION: patient will be transferred for evaluation for bypass surgery Anesthesia Type: Conscious Sedation Estimated blood loss (mL): 25 ml Contrast Amount: 77 ml Total Radiation Dose: 584 mGy Post-Procedure Diagnosis Post-operative diagnosis: non-ST elevation myocardial infarction Coronary artery disease Hypertension Hyperlipidemia MORGAN MUNROE MD May 12, 2020 16:09
== END 2020-05-12 15:00 | disposition short-term general hospital (02) ==
LOC: EDUNIT# 21:17 → ER 21:19 → 4TH 22:35 → CSD 05-12 12:10
PROVIDERS: ADMIT Family Medicine; ATTEND Family Medicine
DX: I21.4 Non-ST elevation (NSTEMI) myocardial infarction (principal); I25.10 Atherosclerotic heart disease of native coronary artery without angina pectoris; I10 Essential (primary) hypertension; E78.5 Hyperlipidemia, unspecified; E78.00 Pure hypercholesterolemia, unspecified; E11.9 Type 2 diabetes mellitus without complications; M19.90 Unspecified osteoarthritis, unspecified site; I24.9 Acute ischemic heart disease, unspecified; I34.0 Nonrheumatic mitral (valve) insufficiency; Z79.84 Long term (current) use of oral hypoglycemic drugs; Z79.899 Other long term (current) drug therapy; Z88.0 Allergy status to penicillin; Z88.5 Allergy status to narcotic agent; Z87.891 Personal history of nicotine dependence; Z80.3 Family history of malignant neoplasm of breast
CPT/HCPCS: 36221; 36415; 71045; 80053; 80061; 83735; 83874; 83880; 84484; 85025; 85610; 85730; 93005; 93041; 93306; 93458

== ENCOUNTER 2020-11-02 11:00 | Outpatient (RCR) | payer MEDICARE, OTHER ==
[~2020-11-02 11:00] MED LIST changes: +ACET-2267 PO; +ASPI-1238 PO; +COLE625T14 PO; +EMPA1TAB PO; +EZET10TA49 PO; +GABA-486 PO; +GABA300C PO; +GLIM4TAB5 PO; +INSU100I34 SC; +L.AC1CAP6 PO; +MAGN400C PO; +MULT-1136 PO; +OMEP20CA18 PO; +PITA4TAB2 PO; +VALS1TAB5 PO
== END 2020-11-07 | disposition home or self-care (01) ==
LOC: CR 11:00
PROVIDERS: ATTEND Family Medicine
DX: Z48.812 Encounter for surgical aftercare following surgery on the circulatory system (principal); Z95.1 Presence of aortocoronary bypass graft
CPT/HCPCS: 93798

== ENCOUNTER 2020-12-02 11:15 | Outpatient (RCR) | payer MEDICARE, OTHER | END 2020-12-04 | disposition home or self-care (01) | LOC: CR3 11:15 | PROVIDERS: ATTEND Family Medicine | DX: Z95.1 Presence of aortocoronary bypass graft (principal) | CPT/HCPCS: 93798 ==

== ENCOUNTER → 2021-01-04 | Outpatient (RCR) | payer MEDICARE, OTHER | END | disposition home or self-care (01) | LOC: CR3 12-05 11:10 | PROVIDERS: ATTEND Family Medicine | DX: Z95.1 Presence of aortocoronary bypass graft (principal) ==

== ENCOUNTER → 2021-01-31 | Outpatient (CLI) | payer MEDICARE, OTHER | LOC: CARD 11:00 | PROVIDERS: ATTEND Internal Medicine Cardiovascular Disease | DX: I35.1 Nonrheumatic aortic (valve) insufficiency (principal); I10 Essential (primary) hypertension; I25.10 Atherosclerotic heart disease of native coronary artery without angina pectoris | CPT/HCPCS: 93306 ==

== ENCOUNTER 2021-02-01 17:18 | Outpatient (RCR) | payer MEDICARE, OTHER | END 2021-02-05 | LOC: CR3 17:18 | PROVIDERS: ATTEND Family Medicine | DX: Z29.8 Encounter for other specified prophylactic measures (principal); Z95.1 Presence of aortocoronary bypass graft ==

== ENCOUNTER → 2021-03-08 | Outpatient (RCR) | payer MEDICARE, OTHER ==
[~2021-03-08] MED LIST changes: +CYCL10TA25 PO; -CYCL10TA9 PO
== END | disposition home or self-care (01) ==
LOC: CR3 02-06 13:03
PROVIDERS: ATTEND Family Medicine
DX: Z48.812 Encounter for surgical aftercare following surgery on the circulatory system (principal); Z95.1 Presence of aortocoronary bypass graft

== ENCOUNTER → 2021-03-15 | Outpatient (CLI) | payer MEDICARE, OTHER ==
[~2021-03-15] MED LIST changes: +CATHETER FLUSH 10 ML SYR IV PRN; +REGADENOSON 0.4 MG/5 ML SYR (LEXISCAN) IV ONE
[2021-03-15 09:18] VITALS: BP 136/75
--- NOTE | 2021-03-15 12:11 | Cardiology Stress Test Report ---
Stress Test Report Date of Procedure/Referring: Date of Procedure: Mar 15, 2021 PCP Morgan Fontana MD Admitting Physician No,Local Physician Indications: HTN Baseline Heart Rate: 82 Baseline Blood Pressure: Blood Pressure Systolic: 136 Blood Pressure Diastolic: 75 Baseline Vitals Vital Signs Date Time Temp Pulse Resp B/P (MAP) Pulse Ox O2 Delivery O2 Flow Rate FiO2 03/15/21 09:18 87 20 136/75 (95) Baseline EKG: Baseline EKG: NSR Summary After explaining the procedure to the patient, she signed a consent and then brought to the stress nuclear laboratory. Patient received 0.4 mg Lexiscan for stress test, ECG, heart rate and blood pressure were monitored continuously. Resting and stress dose of radio tracer were injected, imaging was acquired and reviewed in short axis, horizontal long axis and vertical long axis views. TID: 1.24 SSS: 6 SDS: 6 EF: 70 1. Patient tolerated Lexiscan well 2. Transient ischemic dilatation 1.24 3. Reversible ischemia involving the basal to mid inferior wall 4. Normal left ventricular size, EF 70% MORGAN FONTANA MD Mar 15, 2021 12:11
== END ==
LOC: CARD 08:30
PROVIDERS: ATTEND Internal Medicine Cardiovascular Disease
DX: I10 Essential (primary) hypertension (principal); I25.10 Atherosclerotic heart disease of native coronary artery without angina pectoris
CPT/HCPCS: 78452; 93017; A9502

== ENCOUNTER 2021-03-20 10:47 | Outpatient (RCR) | payer MEDICARE, OTHER ==
[~2021-03-20 10:47] MED LIST changes: -CATHETER FLUSH 10 ML SYR IV PRN; -REGADENOSON 0.4 MG/5 ML SYR (LEXISCAN) IV ONE
[2021-04-12] MEDS ORDERED: PANT40TA52 PO (07:58)
[2021-04-12] MEDS ORDERED: METO-333 PO (07:58)
[2021-04-12] MEDS ORDERED: CLOP75TA28 PO (07:58)
[2021-04-12] MEDS ORDERED: CEPH500T PO (07:58)
[2021-04-12] MEDS ORDERED: ACET-3075 PO (07:58)
[2021-04-12] MEDS ORDERED: VITA-189 PO (07:58)
[2021-04-12] MEDS ORDERED: GLIM2TAB4 PO (09:08)
[2021-04-13] MEDS ORDERED: METF-399 PO (06:18)
== END 2021-05-07 | disposition home or self-care (01) ==
LOC: CR3 10:47
PROVIDERS: ATTEND Family Medicine
DX: Z95.1 Presence of aortocoronary bypass graft (principal); Z29.8 Encounter for other specified prophylactic measures

== ENCOUNTER 2021-04-12 06:39 | Day surgery (SDC) | payer MEDICARE, OTHER ==
[2021-04-12] VITALS (11 sets, daily range): BP systolic 122–147; BP diastolic 68–91
[~2021-04-12] VITALS: Ht 157.5 cm; Wt 85.9 kg
[2021-04-12] MEDS ORDERED: HEParin (CATH LAB) 2,000 ML IV ONE (06:58)
[2021-04-12] MEDS ORDERED: NS IV 1000 ML 1,000 ML ONE (06:58)
[2021-04-12] MEDS ORDERED: LIDOCAINE 1% INJ 20 ML 20 ML VIAL ONE (06:58)
[2021-04-12] MEDS: NS IV 1000 ML 1,000 ML IV SCH ×4 (07:07→20:51)
[2021-04-12 07:28] LABS: HEMATOCRIT 40 % (35-52); HEMOGLOBIN 12.9 g/dL (11.5-16.0); MEAN CORPUSCULAR HEMOGLOBIN 27 pg (25-34); MEAN CORPUSCULAR HGB CONC 33 g/dL (32-36); MEAN CORPUSCULAR VOLUME 83 fL (80-99); MEAN PLATELET VOLUME 9.3 fL (9.0-12.2); PLATELET COUNT 372 10^3/uL (130-400); WHITE BLOOD COUNT 7.1 10^3/uL (4.3-11.0)
[2021-04-12 07:30] LABS: BILIRUBIN,URINE NEGATIVE (NEGATIVE); CLARITY,URINE CLEAR; COLOR,URINE YELLOW; GLUCOSE, URINE (UA) 3+ (NEGATIVE); KETONES,URINE NEGATIVE (NEGATIVE); LEUKOCYTE ESTERASE ,URINE NEGATIVE (NEGATIVE); NITRITE,URINE NEGATIVE (NEGATIVE); PH,URINE 5.5 (5-9); PROTEIN,URINE NEGATIVE (NEGATIVE)
[2021-04-12] MEDS ORDERED: fentaNYL INJ 100 MCG/2 ML AMP ONE (07:40)
[2021-04-12] MEDS ORDERED: MIDAZOLAM 5 MG/5 ML (VERSED) VIAL ONE (07:41)
[2021-04-12 07:47] LABS: ALBUMIN 4.1 GM/DL (3.2-4.5); POTASSIUM 3.8 MMOL/L (3.6-5.0)
[2021-04-12 07:48] LABS: CALCIUM 9.1 MG/DL (8.5-10.1)
[2021-04-12 07:48] LABS: BACTERIA,URINE NEGATIVE /HPF; RBC,URINE RARE /HPF; SQUAMOUS EPITHELIAL CELL,UR 0-2 /HPF; WBC,URINE RARE /HPF
[2021-04-12 07:50] LABS: TOTAL PROTEIN 7.3 GM/DL (6.4-8.2)
[2021-04-12 07:52] LABS: BILIRUBIN,TOTAL 0.4 MG/DL (0.1-1.0)
[2021-04-12 07:53] LABS: CREATININE SERUM 1.16 MG/DL (0.60-1.30)
[2021-04-12 07:56] LABS: INR 1.1 (0.8-1.4); PROTHROMBIN TIME PATIENT 14.8 SEC (12.2-14.7)
[2021-04-12] MEDS ORDERED: CEPH500T PO (07:58)
[2021-04-12] MEDS ORDERED: PANT40TA52 PO (07:58)
[2021-04-12] MEDS ORDERED: VITA-189 PO (07:58)
[2021-04-12] MEDS ORDERED: ACET-3075 PO (07:58)
[2021-04-12] MEDS ORDERED: METO-333 PO (07:58)
[2021-04-12] MEDS ORDERED: CLOP75TA28 PO (07:58)
--- NOTE | 2021-04-12 08:05 | Diagnostic Imaging Report ---
INDICATION: Preoperative evaluation. Comparison made with previous study from May 12, 2020. FINDINGS: The patient is status post prior sternotomy and apparent bypass grafting. Heart size is appropriate without current edema or failure. The lungs appear clear without findings of pneumonia or effusion. There is no pneumothorax. IMPRESSION: 1. Prior coronary artery bypass grafting. No acute cardiopulmonary process. Dictated by: Dictated on workstation # [id number]
--- NOTE | 2021-04-12 08:29 | Conscious Sedation/ASA ---
Conscious Sedation Pre-Proced Time 08:29 ASA Score 3 For ASA 3 and 4: Consider anesthesia and medical clearance. Also, for patients with a history of failed moderate sedation consider anesthesia. Airway Lungs Heart ASA score ASA 1: a normal healthy patient ASA 2: a patient with a mild systemic disease (mid diabetes, controlled hypertension, obesity x ASA 3: a patient with a severe systemic disease that limits activity (angina, COPD, prior Myocardial infarction) ASA 4: a patient with an incapacitating disease that is a constant threat to life (CHF, renal failure) ASA 5: a moribund patient not expected to survive 24 hrs. (ruptured aneurysm) ASA 6: a declared brain- patient whose organs are being harvested. For emergent operations, add the letter E after the classification Mallampati Classification Grade 3 Sedation Plan Analgesia, Amnesia, Plan communicated to team members, Discussed options with patient/fam, Discussed risks with patient/fam The patient is an appropriate candidate to undergo the planned procedure, sedation, and anesthesia. The patient immediately re-assessed prior to indication. MORGAN MUNROE MD Apr 12, 2021 08:29
[2021-04-12] MEDS ORDERED: HEParin 1000 UNIT/ML (10ML VIAL) FOR BOLUS ONE (08:58)
[2021-04-12] MEDS ORDERED: NITRO DRIP 25000 MCG/D5W 250 ML IV ONE (08:58)
[2021-04-12] MEDS ORDERED: GLIM2TAB4 PO (09:08)
[2021-04-12] MEDS ORDERED: ASPIRIN 325 MG (5 GR) TABLET ONE (09:20)
[2021-04-12] MEDS ORDERED: CLOPIDOGREL 300 MG (PLAVIX) TABLET PO ONE (09:20)
[2021-04-12] MEDS ORDERED: PATIENT MAY USE OWN MEDS, ALL PO SCH (09:30)
--- NOTE | 2021-04-12 09:40 | Cardiac Cath Report ---
Cardiac Cath Report Physician (s)/Beef Farmer (s) Physician MORGAN MUNROE MD Pre-Procedure Diagnosis Pre-Procedure Diagnosis: Coronary artery disease Post-Procedure Note Procedure Start Date: Apr 12, 2021 Name of Procedure: Left heart catheterization Vein graft angiogram GOODEN angiogram Aortic arch angiogram PCI to the vein graft to the obtuse marginal Findings/Procedure Note PROCEDURE NOTE: 66-year-old lady with a history of coronary artery disease, had CABG x4 done in May 2020, had an abnormal stress test, scheduled for cardiac catheterization possible PTCA. After explaining the procedure to the patient, all pros and cons were explained, all questions were answered. The patient signed the consent and then she was placed on the cardiac catheterization laboratory. Groin was prepped SL fashion local anesthesia was used. Sheath placed in the right femoral artery. Bette right and left catheter were used to access the coronary system.Vein Graft eval uated. GOODEN evaluated. Pigtail was used to access the left ventricular cavity. Left ventriculogram was not done, pressure was measured Aortic arch angiogram was done. Patient had severe stenosis at the ostium of the vein graft to the obtuse marginal branch, 5000 units of heparin were given, left vein guide was advanced, BMW wire was advanced in the vein graft and the lumen was very small with occlusion of that vein graft by the wire alone. I try to dilate the vein graft with a 3.0 balloon without good success due to the watermelon seeding effect of that vein graft, after multiple attempts I remove the balloon and used 2.5 x 20 mm trek balloon advanced to the ostium and did multiple inflation, post balloon angioplasty I was satisfied with the results with excellent resolution of the severe ostial stenosis of that vein graft. At the end of the procedure the sheath was removed. Closure device was deployed FINDINGS: Hemodynamics LV 117/13, end-diastolic pressure of 13 Aorta 130/68 mean of 93 ANATOMY: Left Main has moderate stenosis distally Left Anterior Descending has severe stenosis, GOODEN to the LAD is patent Left Circumflex is moderate in size with severe OM 2 stenosis, vein graft to the OM is patent with severe ostial stenosis, complex intervention with successful balloon angioplasty to the ostium using trek 2.5 x 20 mm balloon with excellent results Right Coronary Artery is occluded with occluded vein graft to the right coronary artery, the right coronary artery is receiving collaterals from the left system GOODEN to LAD is patent Vein Graft evaluation showed markers for 3 vein grafts. The lower vein graft is a vein graft to the right coronary artery that is occluded The middle vein graft is having graft to the diagonal artery that is occluded The upper vein graft is a vein graft to the obtuse marginal branch that has severe ostial stenosis, successful balloon angioplasty using trek 2.5 x 20 mm balloon with excellent results LV Gram was not done, pressure was measured Aorta evaluation done with aortic arch angiogram showing normal aortic arch, no dissection or aneurysm, normal with tortuous origin of the brachiocephalic artery, slightly tortuous left carotid artery, mild calcification at the left subclavian artery, no obstructive disease CONCLUSION: 1. Severe [place] coronary artery disease as described above 2. 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 Severe stenosis at the proximal second obtuse marginal branch with severe stenosis at the ostium of the vein graft to the obtuse marginal branch, successful balloon angioplasty using trek 2.5 x 20 mm balloon with excellent results 4. Severe stenosis in the mid LAD with patent GOODEN to LAD 5. Occluded vein graft to the diagonal artery 6. Normal left ventricular end-diastolic pressure 7. Mild atherosclerotic plaque in the aortic arch, no dissection or aneurysm, tortuous but patent great vessels of the neck DISCUSSION AND RECOMMENDATION: Continue to maximize medical therapy. Neither the right coronary artery or the vein graft to the right coronary artery are amendable to intervention, the right coronary system is receiving collaterals from the left. The vein graft to the diagonal artery is occluded and not amendable to intervention Anesthesia Type: Conscious Sedation Estimated blood loss (mL): 35 ml Contrast Amount: 116 ml Total Radiation Dose: 1086 mGy Post-Procedure Diagnosis Post-operative diagnosis: Coronary artery disease Hypertension Diabetes mellitus Hyperlipidemia MORGAN MUNROE MD Apr 12, 2021 09:40
[2021-04-12] MEDS ORDERED: CEPHALEXIN 250 MG (KEFLEX) CAP PO SCH (13:00)
[2021-04-12] MEDS: CEPHALEXIN 500 MG CAPSULE PO SCH ×2 (15:53→20:47)
[2021-04-12] MEDS ORDERED: GABAPENTIN 100 MG (NEURONTIN) CAP PO SCH (18:00)
[2021-04-12] MEDS: [UNRECOGNIZED DRUG - REMARK] PO SCH (20:46)
[2021-04-12] MEDS: meTOprolol TARTRATE 25 MG (LOPRESSOR) TABLET PO SCH (20:50)
[2021-04-12] MEDS ORDERED: [UNRECOGNIZED DRUG - REMARK] PO SCH (21:00)
[2021-04-12] MEDS ORDERED: [UNRECOGNIZED DRUG - REMARK] PO SCH (21:00)
[2021-04-12] MEDS ORDERED: [UNRECOGNIZED DRUG - REMARK] PO SCH (21:00)
[2021-04-12] MEDS ORDERED: GABAPENTIN 300 MG (NEURONTIN) CAP PO SCH (21:00)
[2021-04-12] MEDS ORDERED: eZETimibe 10 MG (ZETIA) TABLET PO SCH (21:00)
[2021-04-13] MEDS: NS IV 1000 ML 1,000 ML IV SCH ×2 (03:10→06:31)
[2021-04-13 04:00] VITALS: BP 128/70
[2021-04-13 05:52] LABS: HEMATOCRIT 36 % (35-52); HEMOGLOBIN 11.5 g/dL (11.5-16.0); MEAN CORPUSCULAR HEMOGLOBIN 27 pg (25-34); MEAN CORPUSCULAR HGB CONC 32 g/dL (32-36); MEAN CORPUSCULAR VOLUME 83 fL (80-99); MEAN PLATELET VOLUME 9.4 fL (9.0-12.2); PLATELET COUNT 335 10^3/uL (130-400); WHITE BLOOD COUNT 7.6 10^3/uL (4.3-11.0)
[2021-04-13 06:10] LABS: POTASSIUM 3.9 MMOL/L (3.6-5.0)
[2021-04-13 06:11] LABS: CALCIUM 8.4 MG/DL (8.5-10.1)
[2021-04-13 06:16] LABS: CREATININE SERUM 1.03 MG/DL (0.60-1.30)
[2021-04-13] MEDS ORDERED: METF-399 PO (06:18)
--- NOTE | 2021-04-13 06:19 | Discharge Inst-Post CATH ---
Discharge Inst-CATH/EP Problems Reviewed?: Yes Post Cardiac Cath/EP D/C Inst Follow Up/Plan Hold Metformin for [address] Fontana in 2-4 weeks <b>CARDIAC CATH/EP PROCEDURE DISCHARGE INSTRUCTIONS</b> ACTIVITY * Go Home directly and rest. * Limit activity of the leg (or wrist if it was used) for 7 days including aerobics, swimming, jogging, bicycling, etc. * Restrict stair-climbing for 7 days if possible, if not, climb up with your non-cath leg, then bring together on the same step. * Avoid lifting, pushing, pulling or excessive movement of the affected extremity for 7 days. * Customary sexual activity may be resumed after 2 days-use caution not to use a position that strains or causes pain to the affected extremity. * No driving for 24 hours. * NO SMOKING. * Avoid straining for bowel movements for 7 days. * Gentle walking on level ground is allowed. * Returning to work will depend on the type of procedure and the results. Your doctor will discuss this with you. CALL YOUR DOCTOR FOR ANY OF THE FOLLOWING: *If bleeding from the puncture site occurs- Apply gentle pressure to site with clean cloth and call your doctor or EMS. * If a knot or lump forms under the skin, increases in size, or causes pain. * If bruising appears to be worsening or moving further down your leg instead of disappearing. * Temperature above 101 F. CARE OF YOUR GROIN INCISION; * Bruising or purple discoloration of the skin near the puncture site is common. * You may shower only, no bathtub bathing for 5 days. Be careful to avoid slipping as your leg may feel stiff. * If a closure device was used on your femoral artery, please see the attached guide regarding care of the device and your leg. * Leave dressing on FOR 24 hours. CARE OF YOUR WRIST INCISION; * Bruising or purple discoloration of the skin near the puncture site is common. * You may shower. * DO NOT submerge wrist. * Leave dressing on FOR 24 hours. MORGAN FONTANA MD Apr 13, 2021 06:19
[2021-04-13] MEDS ORDERED: GLIMEPIRIDE 4 MG (AMARYL) TAB PO SCH (06:30)
[2021-04-13] MEDS ORDERED: MULTIVIT W/MINERALS TAB (THERAGRAN M) PO SCH (07:00)
[2021-04-13 07:45] VITALS: BP 125/65
[2021-04-13] MEDS: CEPHALEXIN 500 MG CAPSULE PO SCH (08:01)
[2021-04-13] MEDS: meTOprolol TARTRATE 25 MG (LOPRESSOR) TABLET PO SCH (08:02)
[2021-04-13] MEDS: [UNRECOGNIZED DRUG - REMARK] PO SCH (08:02)
--- NOTE | 2021-04-13 08:35 | Cardiology Progress Note ---
Subjective Date Seen by Provider: Apr 13, 2021 Time Seen by Provider: 08:32 Subjective/Events-last exam Patient is laying down in bed, feeling well, groin is healed well. Review of Systems General: No Chills, No Night Sweats, No Fatigue, No Malaise, No Appetite, No Other HEENT: No Head Aches, No Visual Changes, No Eye Pain, No Ear Pain, No Dysphasia, No Sinus Congestion, No Post Nasal Drip, No Sore Throat, No Other Pulmonary: No Dyspnea, No Cough, No Pleuritic Chest Pain, No Other Cardiovascular: No: Chest Pain, Palpitations, Orthopnea, Paroxysmal Noc. Dyspnea, Edema, Lt Headedness, Other Objective-Cardiology Exam Last Set of Vital Signs Vital Signs 04/13/21 07:45 Temp 36.5 Pulse 86 Resp 24 B/P (MAP) 125/65 (85) Pulse Ox 96 O2 Delivery Room Air I&O Intake and Output 04/13/21 00:00 Intake Total 650 ml Balance 650 ml Intake Oral 650 ml # Voids 2 General: Alert, Oriented X3, Cooperative HEENT: Atraumatic, PERRLA Neck: Supple, No JVD, No Thyromegaly Lungs: Clear to Auscultation, Normal Air Movement Heart: Regular Rate, Normal S1, Normal S2, No Murmurs Abdomen: Normal Bowel Sounds, Soft, No Tenderness, No Hepatosplenomegaly, No M asses Extremities: No Clubbing, No Cyanosis, No Edema, Normal Pulses, No Tende rness/Swelling Skin: No Rashes, No Breakdown, No Significant Lesion Neuro: Normal Gait, Normal Speech, Strength at 5/5 X4 Ext, Normal Tone, Sensation Intact Psych/Mental Status: Mental Status NL, Mood NL Results Lab Laboratory Tests 04/13/21 05:36 A/P-Cardiology Admission Diagnosis CAD HTN HLD Assessment/Plan Coronary artery disease: 1. Severe [place] coronary artery disease as described above 2. 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 Severe stenosis at the proximal second obtuse marginal branch with severe stenosis at the ostium of the vein graft to the obtuse marginal branch, successful balloon angioplasty using trek 2.5 x 20 mm balloon with excellent results 4. Severe stenosis in the mid LAD with patent GOODEN to LAD 5. Occluded vein graft to the diagonal artery 6. Normal left ventricular end-diastolic pressure 7. Mild atherosclerotic plaque in the aortic arch, no dissection or aneurysm, tortuous but patent great vessels of the neck done Hypertension, continue on current medication Hyperlipidemia, monitor lipids Patient was educated in length about taking aspirin and Plavix, compliance with medication. MORGAN MUNROE MD Apr 13, 2021 08:35
[2021-04-13] MEDS ORDERED: CLOPIDOGREL 75 MG (PLAVIX) TABLET PO SCH (09:00)
[2021-04-13] MEDS ORDERED: [UNRECOGNIZED DRUG - REMARK] PO SCH (09:00)
[2021-04-13] MEDS ORDERED: [UNRECOGNIZED DRUG - REMARK] PO SCH (09:00)
[2021-04-13] MEDS ORDERED: [UNRECOGNIZED DRUG - REMARK] PO SCH (09:00)
[2021-04-13] MEDS ORDERED: ASPIRIN E.C. 81 MG (ECOTRIN) TAB PO SCH (09:00)
[2021-04-13] MEDS ORDERED: PANTOPRAZOLE 40 MG (PROTONIX) TAB PO SCH (09:00)
[2021-04-13 09:25] VITALS: BP 125/65
== END 2021-04-13 09:24 | disposition home or self-care (01) ==
LOC: CATH 06:39 → CSD 09:05 → CATH 04-13 09:24
PROVIDERS: ATTEND Internal Medicine Cardiovascular Disease
DX: I25.10 Atherosclerotic heart disease of native coronary artery without angina pectoris (principal); I10 Essential (primary) hypertension; E11.9 Type 2 diabetes mellitus without complications; E78.5 Hyperlipidemia, unspecified; E78.2 Mixed hyperlipidemia; I65.23 Occlusion and stenosis of bilateral carotid arteries; Z95.1 Presence of aortocoronary bypass graft; Z79.899 Other long term (current) drug therapy; Z79.82 Long term (current) use of aspirin; Z79.02 Long term (current) use of antithrombotics/antiplatelets; Z79.84 Long term (current) use of oral hypoglycemic drugs; Z83.3 Family history of diabetes mellitus
CPT/HCPCS: 36221; 71045; 80048; 80053; 80061; 81000; 85027 ×2; 85610; 85730; 87081; 92937; 93005; 93459; C1725 ×2; C1760; C1769; C1887; C1894; 36415

== ENCOUNTER → 2021-05-08 | Outpatient (RCR) | payer MEDICARE, OTHER ==
[~2021-05-08] MED LIST changes: +ACET-3075 PO; +CEPH500T PO; +CLOP75TA28 PO; +GLIM2TAB4 PO; +METO-333 PO; +PANT40TA52 PO; +VITA-189 PO
== END | disposition home or self-care (01) ==
LOC: CR 05-05 09:56
PROVIDERS: ATTEND Internal Medicine Cardiovascular Disease
DX: Z98.61 Coronary angioplasty status (principal)
CPT/HCPCS: 93798

== ENCOUNTER → 2021-06-05 | Outpatient (RCR) | payer MEDICARE, OTHER | END | disposition home or self-care (01) | LOC: CR 05-15 10:41 | PROVIDERS: ATTEND Internal Medicine Cardiovascular Disease | DX: Z29.8 Encounter for other specified prophylactic measures (principal); Z98.61 Coronary angioplasty status | CPT/HCPCS: 93798 ==

== ENCOUNTER 2021-07-05 09:54 | Outpatient (RCR) | payer MEDICARE, OTHER | END 2021-07-06 | disposition home or self-care (01) | LOC: CR 09:54 | PROVIDERS: ATTEND Internal Medicine Cardiovascular Disease | DX: Z29.8 Encounter for other specified prophylactic measures (principal) | CPT/HCPCS: 93798 ==

== ENCOUNTER 2021-08-04 10:06 | Outpatient (RCR) | payer MEDICARE, OTHER | END 2021-08-05 | disposition home or self-care (01) | LOC: CR 10:06 | PROVIDERS: ATTEND Internal Medicine Cardiovascular Disease | DX: Z29.8 Encounter for other specified prophylactic measures (principal); Z98.61 Coronary angioplasty status | CPT/HCPCS: 93798 ==

== ENCOUNTER 2021-08-16 11:31 | Outpatient (RCR) | payer MEDICARE, OTHER | END 2021-09-05 | disposition home or self-care (01) | LOC: CR 11:31 | PROVIDERS: ATTEND Internal Medicine Cardiovascular Disease | DX: Z29.8 Encounter for other specified prophylactic measures (principal); Z98.61 Coronary angioplasty status | CPT/HCPCS: 93798 ==

== ENCOUNTER 2021-10-04 14:31 | Outpatient (RCR) | payer MEDICARE, OTHER | END 2021-10-05 | disposition home or self-care (01) | LOC: CR3 14:31 | PROVIDERS: ATTEND Family Medicine | DX: Z95.1 Presence of aortocoronary bypass graft (principal) | CPT/HCPCS: 93798 ==

== ENCOUNTER 2021-12-04 15:00 | Outpatient (RCR) | payer MEDICARE, OTHER | END 2021-12-05 | disposition home or self-care (01) | LOC: CR3 15:00 | PROVIDERS: ATTEND Family Medicine | DX: Z95.1 Presence of aortocoronary bypass graft (principal) ==

== ENCOUNTER → 2022-01-05 | Outpatient (RCR) | payer MEDICARE, OTHER | END | disposition home or self-care (01) | LOC: CR3 12-06 16:25 | PROVIDERS: ATTEND Family Medicine | DX: Z95.1 Presence of aortocoronary bypass graft (principal) ==

== ENCOUNTER 2022-02-21 10:23 | Outpatient (RCR) | payer MEDICARE, OTHER | END 2022-03-07 | disposition home or self-care (01) | LOC: CR3 10:23 | PROVIDERS: ATTEND Family Medicine | DX: Z95.1 Presence of aortocoronary bypass graft (principal); Z29.8 Encounter for other specified prophylactic measures ==

== ENCOUNTER → 2022-11-12 | Outpatient (CLI) | payer MEDICARE, OTHER ==
[~2022-11-12] VITALS: Ht 157 cm; Wt 81.0 kg
[~2022-11-12] MED LIST changes: +CATHETER FLUSH 10 ML SYR IVP PRN; +REGADENOSON 0.4 MG/5 ML SYR (LEXISCAN) IV ONE
[2022-11-12 09:06] VITALS: BP 145/73
== END ==
LOC: CARD 08:15
PROVIDERS: ATTEND Physician Assistant
DX: I10 Essential (primary) hypertension (principal); I25.10 Atherosclerotic heart disease of native coronary artery without angina pectoris
CPT/HCPCS: 78452; 93017; A9502